=== PATIENT | female | born 1975 | race Caucasian/White ===

== ENCOUNTER 2023-10-16 10:46 | Outpatient (CLI) | payer OTHER, MEDICAID ==
[~2023-10-16 10:46] MED LIST: AMIT25TA9 PO; ESCI10TA PO; OXYB5TAB17 PO
== END 2023-10-16 17:08 | disposition home or self-care (01) ==
LOC: SUS 10:46
PROVIDERS: ATTEND Surgery Vascular Surgery
DX: I73.9 Peripheral vascular disease, unspecified (principal)
CPT/HCPCS: 93923